=== PATIENT | male | born 1960 | race Caucasian/White ===

== ENCOUNTER 2023-06-19 01:41 | Emergency (ER) | payer OTHER, MEDICAID, SELFPAY ==
[2023-06-19 01:44] VITALS: BP 150/103; PULSE 90; RESP 12; TEMP 36.5; O2SAT 98; BMI 30.7
--- NOTE | 2023-06-19 01:52 | EX.ED.DYSGE1 ---
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 He did not have his meter with him since he was at work, so he drinks Mountain Dew and had a snack on his way here. Upon evaluation, his blood sugar is testing 122. He denies having any other symptoms. No recent illness. He is a type II diabetic on pills and insulin. Appetite and oral intake has been normal lately has not taken too much of any of his medications. 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) Allergy/AdvReac Type Severity Reaction Status Date / Time No Known Allergies Allergy Verified 06/19/23 01:50 Social History Smoking Status: Current every day smoker tobacco type: cigarettes ROS ROS ED Constitutional Constitutional ED: Reports malaise; Denies chills or fever(s) Eyes Eyes: Denies change in vision or diplopia ENT ENT ED: Denies rhinorrhea, sore throat or vertigo Cardiovascular Cardiovascular: Reports lightheadedness; Denies chest pain, palpitations or syncope Respiratory/Chest Respiratory/Chest: Denies cough or dyspnea Gastrointestinal Gastrointestinal: Denies abdominal pain, diarrhea, nausea or vomiting Genitourinary Genitourinary ED: Denies dysuria or hematuria Musculoskeletal Musculoskeletal: Denies back pain or neck pain Integumentary Denies abscess or rash Neurologic Neurologic: Denies headache(s), paresthesias or weakness Psychiatric Psychiatric: Denies anxiety or suicidal thoughts EXAM Physical Exam Const Vital Signs: 06/19/23 01:44 06/19/23 01:46 06/19/23 02:14 Temperature 97.7 F L Temperature Source Oral Pulse Rate 90 80 Respiratory Rate 12 12 Respiratory Effort Normal Respiratory Pattern Normal Blood Pressure 150/103 H 129/87 H Blood Pressure Mean 118 101 Pulse Ox 98 98 Oxygen Delivery Method Room Air Room Air 06/19/23 02:49 Temperature Temperature Source Pulse Rate 80 Respiratory Rate 12 Respiratory Effort Respiratory Pattern Blood Pressure 124/77 H Blood Pressure Mean 92 Pulse Ox 100 Oxygen Delivery Method Positive well nourished and well developed Constitutional Narrative: Well-appearing. Dry skin. Conversive in full sentences without difficulty. General Appearance ED: well developed and NAD HEENT Reports moist mucous membranes normocephalic and atraumatic Eyes PERRL and EOMs intact bilaterally Neck full ROM and supple Resp normal respiratory effort and clear to auscultation bilaterally Cardio regular rate, regular rhythm and no murmurs GI non-tender and non-distended Auscultation: normoactive bowel sounds Palpation: soft Back/Spine no CVA tenderness General Back: other FROM Extremity normal to inspection General Extremety ED: Negative for edema, pulses abnormal or tenderness General Extremity: Negative for edema or pulses abnormal Neuro oriented x3, CN's II-XII intact bilaterally and no sensory deficits noted Sensorium / Orientation: awake and alert Motor Exam: strength 5/5 throughout Psych mental status grossly normal Skin no rashes or lesions noted and no wounds MDM MDM MDM Narrative Medical decision making narrative: BGT 122. Otherwise vital signs are noted, little hypertensive but otherwise unremarkable. Differential is wide for these nonspecific symptoms but does include transient hypoglycemia that appears to be resolved right now, in addition to early illness of multiple kinds. Offered more workup, patient declines and would prefer to be observed, with IV fluids and maybe a snack and we will recheck his blood sugar. This was done, he is 89, he is feeling improved, states he feels a little tired still but basically feels similar to the way he does after he has recovered from a hypoglycemic episode. 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 At this time he feels he can go back to work and perform his job safely. Therefore I am okay with that and we will give him a note saying so. He is comfortable with that plan. Lab Data Attestation: I reviewed the patient's lab results. Labs: Laboratory Results - last 24 hr 06/19/23 01:48 POC Glucose 122 H Discharge Plan Triage Chief Complaint: Hypoglycemia ED Provider: Stephen Hercules Dx/Rx/DC Orders Clinical Impression: Hypoglycemia due to type 2 diabetes mellitus Instructions: Hypoglycemia (Low Blood Sugar) Stand Alone Forms: ED Work / School Excuse Primary Care Provider: Isaac Carrion Referrals: Isaac Carrion MD [Primary Care Provider] - As Needed Disposition Disposition: Home, Self Care
[2023-06-19 02:09] LABS: Bedside Glucose 122 mg/dL (74-106)
[2023-06-19 02:14] VITALS: BP 129/87; PULSE 80; RESP 12; O2SAT 98
[2023-06-19 02:49] VITALS: BP 124/77; PULSE 80; RESP 12; O2SAT 100
--- OUTSIDE RECORDS SUMMARY | 2023-06-19 02:49 | XMS RPT_ITS | CCD ---
Author Name Unknown Address [address] [place] [address] Organization [facility] Care Team Providers Care Orthotics Assistant Name Role Phone JENNIFER RODRIGUEZ Unavailable Unavailable JOSELINE GREENFIELD Unavailable JOSELINE Arshad Unavailable SUZANNE Villasenor Unavailable Unavailable Arcadio Bullard Unavailable Unavailable Sis Lugo Unavailable Unavailable Sis Lugo Unavailable Unavailable Arcadio Bullard Unavailable Unavailable Jeanette Pierson Unavailable [phone] Unavailable Unavailable Gi Hartman Unavailable [facility] webb Stacie Unavailable Unavailable GarvinGi S Unavailable Unavailable Unavailable Spenser Segura Unavailable Unavailable GI HARTMAN Attending Unavailable GI HARTMAN S Primary Care Unavailable Brett Calles Unavailable Unavailable Naomi Abbott Unavailable GI HARTMAN S Primary Care Unavailable Garvin DOYinaGi S. Primary Care Provider Gi Hartman DO Unavailable Kathrin Munson LPN Unavailable Unavailable Ramón Goff Primary Care Provider [phone] Dr. Gi Hartman Primary Care UnavailDr. Brett Schaeffer Attending UnavailDr. Gi Sharif Primary Care Unavailabl e Stevan, Dr. Brett Crawford Attending Unavailabl e Stevan, Dr. Brett Crawford Attending Unavailabl e Garvin, Dr. Gi Stoner Primary Care Unavailabl e MD ANDREA JORDAN Admitting Unavailable Self, Referral Referring Unavailable Moomaw, Mr. Cody Lamb Attending Unavailable , Dr. Gi Stoner Primary Care Unavailabl e Francisca, Dr. Spenser Diaz Attending Unavaila sharon Hartman, Dr. Gi Stoner Primary Care Unavailabl e Matheson, Mrs. Ramón Jewell Primary Care Unavailabl e Stevan, Dr. Brett Crawford Attending Unavailabl e , Dr. Gi Stoner Referring Unavailabl e Kenna, Ms. Jeanette Bryson Primary Care Unava ilable , Dr. Gi Stoner Attending Unavailabl e MD NAOMI ABBOTT Attending Unavailable Matheson, Mrs. Ramón Jewell Primary Care Unavailabl e Garvin, Dr. Gi Stoner Referring Unavailabl e Garvin, Dr. Gi Stoner Primary Care Unavailabl e Garvin, Dr. Gi Stoner Attending Unavailabl e Garvin, Dr. Gi Stoner Primary Care Unavailabl e Garvin, Dr. Gi Stoner Attending Unavailabl e , Dr. Gi Stoner Referring Unavailabl e Garvin, Dr. Gi Stoner Primary Care Unavailabl e Garvin, Dr. Gi Stoner Attending Unavailabl e Garvin, Dr. Gi Stoner Referring Unavailabl e Garvin, Dr. Gi Stoner Primary Care Unavailabl e Garvin, Dr. Gi Stoner Attending Unavailabl e GI HARTMAN. Primary Care Unavailable YUAN JOHNSON Attending Unavailable SPENSER SEGURA Attending Unavailable SPENSER SEGURA Referring Unavailable RAMÓN JONES Primary Care Unavailable Unavailable Primary Care Provider UnavailLORNA Vasquez Attending Unavailable GI HARTMAN Primary Care Unavailable MINOO CRONIN II Attending Unavailabl KIERA Martin Referring Unavailable LORNA ARROYO Attending Unavailable LORNA ARROYO Referring Unavailable LORNA ARROYO Referring Unavailable Medications Current Medications Medication Drug Class(es) Dates Sig (Normalized) Sig (Original) amLODIPine 5 mg oral tablet (12 sources) Dihydropyridine Calcium Channel Roxi Start: 08-22-2020 End: 01-03-2023 take 1 tablet by mouth once daily amLODIPine (Norvasc) 5 mg tablet Take 1 tablet (5 mg) by mouth once daily. 0 08/22/2020 01/03/2023 Discontinued (Other) ARIPiprazole 2 mg oral tablet (3 sources) Atypical Antipsychotic Start: 10-25-2022 take 1 tablet by mouth once daily ARIPiprazole (Abilify) 2 mg tablet Indications: Bipolar depression (CMS/HCC) Take 1 tablet (2 mg) by mouth once daily. 30 tablet 2 10/25/2022 Active ciprofloxacin 500 mg oral tablet (1 source) Quinolone Antimicrobial Start: 06-04-2017 take 1 tablet by mouth twice daily ciprofloxacin HCl (CIPRO) 500 MG tablet Take 1 (one) tablet (500 mg total) by mouth 2 (two) times a day. 20 tablet 0 06/04/2017 Active empagliflozin 10 mg oral tablet (2 sources) Sodium-Glucose Cotransporter 2 Inhibitor Start: 01-03-2023 empagliflozin (Jardiance) 10 mg Indications: Type 2 diabetes mellitus with hyperglycemia, with long-term current use of insulin (CMS/HCC) Take 1 tablet daily in AM 30 tablet 3 01/03/2023 Active esomeprazole 40 mg delayed release oral capsule (17 sources) Proton Pump Inhibitor Start: 12-05-2019 take 1 capsule by mouth once daily esomeprazole (NexIUM) [address] capsule Take 1 capsule (40 mg) by mouth once every day. 0 12/05/2019 Active Garlic preparation (3 sources) Non-Standardized Food Allergenic Extract GARLIC ORAL Take by mouth. 0 Active Completed/Discontinued Medications Medication Drug Class(es) Dates Sig (Normalized) Sig (Original) atenolol 50 mg oral tablet (1 source) beta-Adrenergic Roxi Start: 06-28-2020 take 1 tablet by mouth once daily Atenolol 50 MG Oral Tablet Take 1 tablet daily Quantity: 90 Refills: 1 Ordered: 03-Aug-2020 Jeanette Delacruz Start : 28-Jun-2020 Active atorvastatin 20 mg oral tablet (20 sources) HMG-CoA Reductase Inhibitor Start: 03-22-2023 take 1 tablet by mouth once atorvastatin (LIPITOR) 20 mg tablet Take 1 tablet by mouth every afternoon. 0 03/22/2023 Active Problems Active Problems Problem Classification Problem Date Documented Da te Episodic/Chronic Acquired foot deformities (4 sources) Hammer toe; Translations: [Other hammer toe(s) (acquired), right foot] Onset: 2023 2023 Chronic Anxiety disorders (16 sources) Mixed anxiety and depressive disorder; Translations: [Anxiety state, unspecified] Onset: 05-10-2022 01-03-2023 Chronic Chronic ulcer of skin (15 sources) Ulcer of foot; Translations: [Ulcer of other part of foot] Onset: 07-14-2022 07-14-2022 Chronic Conditions associated with dizziness or vertigo (5 sources) Lightheadedness; Translations: [Dizziness and giddiness] Onset: 05-10-2022 12-13-2022 Episodic Diabetes mellitus with complications (20 sources) Diabetes mellitus; Translations: [Diabetes mellitus without mention of complication, type II or unspecified type, not stated as uncontrolled] Onset: 07-14-2022 Resolved: 01-03-2023 09-03-2022 Chronic Diabetes mellitus without complication (12 sources) Type 2 diabetes mellitus; Translations: [Type 2 diabetes mellitus without complications] Onset: 05-10-2022 Chronic Diabetes mellitus without complication (2 sources) Diabetes mellitus without complication 09-03-2022 Past or Other Problems Problem Classification Problem Date Documented Da te Episodic/Chronic Abdominal pain (2 sources) Periumbilical pain; Translations: [Periumbilical pain] Onset: 03-24-2022 Episodic Diabetes mellitus with complications (1 source) Diabetic - poor control; Translations: [Poorly controlled diabetes mellitus] Immunizations and screening for infectious disease (20 sources) Patient encounter status; Translations: [Other specified vaccination] Onset: 09-03-2022 Resolved: 03-05-2022 09-03-2022 Episodic Nausea and vomiting (4 sources) Nausea and vomiting; Translations: [Nausea with vomiting] Onset: 03-24-2022 03-23-2022 Episodic Other aftercare (1 source) Other [facility] (current) drug therapy; Translations: [Other [facility] (current) drug therapy] Onset: 05-10-2022 Episodic Other aftercare (1 source) [facility] (current) use of oral hypoglycemic drugs; Translations: [intermediate manager (current) use of oral hypoglycemic drugs] Onset: 03-24-2022 Episodic Other gastrointestinal disorders (2 sources) Diarrhea, unspecified; Translations: [Diarrhea, unspecified] Onset: 03-24-2022 Episodic Other screening for suspected conditions (not mental disorders or infectious disease) (4 sources) Encounter for screening for malignant neoplasm of prostate; Translations: [Encounter for screening for malignant neoplasm of prostate] Onset: 09-03-2022 Episodic Residual codes; unclassified (11 sources) Noncompliance with treatment; Translations: [Personal history of noncompliance with medical treatment, presenting hazards to health] Resolved: 06-29-2020 Episodic Residual codes; unclassified (7 sources) Insomnia; Translations: [Insomnia, unspecified] Onset: 07-14-2022 07-14-2022 Episodic Residual codes; unclassified (2 sources) Sleep deprivation; Translations: [Sleep deprivation] Onset: 05-10-2022 Episodic Sprains and strains (5 sources) Sprain of left hand; Translations: [Late effect of sprain and strain without mention of tendon injury] Onset: 07-14-2022 07-14-2022 Episodic Urinary tract infections (1 source) Abscess of perineum; Translations: [Urethral abscess] Onset: 06-04-2017 06-04-2017 Episodic NEGATED: Highlighted row has not occurred!Residual codes; unclassified (4 sources) Disease Episodic Results Test Name Value Interpretation Reference Range Facil ity Vital Signs Date Time Vital Sign Value Performing Clinician Facility 01-21-2023 09:16-0400 Body height 186.7 cm Ramón ELAM Work Phone: [facility] 01-21-2023 09:16-0400 Body mass index (BMI) [Ratio] 31.3 kg/m2 Ramón Jones APRN-ENGINEERING MANAGER [employer]LECT[employer]ICS Work Phone: [facility] 01-21-2023 09:16-040 Body weight 109.09 kg Ramón Jones APRN-YVONNE Work Phone: [facility] 01-21-2023 09:16-0400 Diastolic blood pressure 78 mm[Hg] Ramón Jones APRN-YVONNE Work Phone: [facility] 01-21-2023 09:16-0400 Heart rate 80 /min Ramón Matheson AGENCY APPOINTMENTS SUPERVISOR-ENGINEERING MANAGER ELECTRONICS Work Phone: [facility] 01-21-2023 09:16-0400 Systolic blood pressure 124 mm[Hg] Ramón Jones AGENCY APPOINTMENTS SUPERVISOR-ENGINEERING MANAGER [employer]LECTRONICS Work Phone: [facility] 01-03-2023 08:22-0400 Body height 186.7 cm Ramón Jones AGENCY APPOINTMENTS SUPERVISOR-ENGINEERING MANAGER [employer]LECTRON[employer] Work Phone: [facility] 01-03-2023 08:22-0400 Body mass index (BMI) [Ratio] 31.23 kg/m2 Ramón Jones AGENCY APPOINTMENTS SUPERVISOR-ENGINEERING MANAGER [employer]LECTRONICS Work Phone: [facility] 01-03-2023 08:22-0400 Body weight 108.86 kg Ramón Jones AGENCY APPOINTMENTS SUPERVISOR-ENGINEERING MANAGER [employer]LECTRONICS Work Phone: [facility] 01-03-2023 08:22-0400 Diastolic blood pressure 90 mm[Hg] Ramón Jones AGENCY APPOINTMENTS SUPERVISOR-ENGINEERING MANAGER [employer] Work Phone: [facility] 01-03-2023 08:22-0400 Heart rate 96 /min Ramón Jones AGENCY APPOINTMENTS SUPERVISOR-ENGINEERING MANAGER [employer] Work Phone: [facility] 01-03-2023 08:22-0400 Systolic blood pressure 148 mm[Hg] Ramón Jones AGENCY APPOINTMENTS SUPERVISOR-ENGINEERING MANAGER [employer]LECTRONICS Work Phone: [facility] 12-15-2022 10:00-0400 Body temperature 98.24 [degF] Gi Garvin Other Phone: [facility] 12-15-2022 10:00-0400 Diastolic blood pressure 84 mm[Hg] Gi Garvin Other Phone: [facility] 12-15-2022 10:00-0400 Heart rate 73 /min Gi Garvin Other Phone: [facility] 12-15-2022 10:00-0400 Respiratory rate 16 /min Gi Garvin Other Phone: [facility] 12-15-2022 10:00-0400 SaO2% (BldA) [Mass fraction] 97 % Gi Hartman Other Phone: [facility] 12-15-2022 10:00-0400 Systolic blood pressure 130 mm[Hg] Gi Hartman Other Phone: [facility] 05-28-2022 08:13-0500 Body height 187.96 cm Gi Stoner Garvin Work Phone: [employer] Work Phone: 05-28-2022 08:13-0500 Body mass index (BMI) [Ratio] 30.17 kg/m2 Gi Stoner Garvin Work Phone: [employer] Work Phone: 05-28-2022 08:13-0500 Body surface area Derived from formula 2.33 m2 Gi Hartman [facility] Phone[facility] [employer] Work Phone: 05-28-2022 08:13-0500 Body weight 106.6 kg Gi Hartman Work Phone: [employer] Work Phone: 05-28-2022 08:13-0500 Diastolic blood pressure 84 mm[Hg] Gi Stoner Garvin Work Phone: [facility] Work Phone: 05-28-2022 08:13-0500 Heart rate 82 /min Gi Stoner Garvin Work Phone: [employer] Work Phone: 05-28-2022 08:13-0500 SaO2% (BldA) [Mass fraction] 97 % Gi S Garvin Work Phone: [employer] Work Phone: 05-28-2022 08:13-0500 Systolic blood pressure 162 mm[Hg] Gi S Garvin Work Phone: [employer] Work Phone: 05-10-2022 20:41-0500 Diastolic blood pressure 84 mm[Hg] Gi Garvin Other Phone: [facility] 05-10-2022 20:41-0500 Heart rate 95 /min Gi Garvin Other Phone: [facility] 05-10-2022 20:41-0500 Respiratory rate 17 /min Gi Hartman Other Phone: [facility] 05-10-2022 20:41-0500 SaO2% (BldA) [Mass fraction] 96 % Gi Hartman Other Phone: [facility] 05-10-2022 20:41-0500 Systolic blood pressure 145 mm[Hg] Gi Hartman Other Phone: [facility] 05-10-2022 19:05-0500 Body height 190.5 cm Gi Hartman Other Phone: [facility] 05-10-2022 19:05-0500 Body temperature 97.7 [degF] Gi Hartman Other Phone: [facility] 05-10-2022 19:05-0500 Body weight 99.6 kg Gi Hartman Other Phone: [facility] 2022 07:54-0500 Body height 187.96 cm Gi Stoner Garvin Work Phone: [facility] [employer] Work Phone: 2022 07:54-0500 Body mass index (BMI) [Ratio] 29.66 kg/m2 Gi S Garvin Work Phone: [employer] Work Phone: 2022 07:54-0500 Body surface area Derived from formula 2.31 m2 Gi S Garvin Work Phone: [facility] [employer] [facility] Work Phone: 2022 07:54-0500 Body weight 104.78 kg Gi Hartman Work Phone: [facility] Work Phone: 2022 07:54-0500 Diastolic blood pressure 80 mm[Hg] Gi Stoner Garvin Work Phone: [facility] Work Phone: 2022 07:54-0500 Heart rate 90 /min Gi Hartman [employer] Phone: [facility] Work Phone: 2022 07:54-0500 SaO2% (BldA) [Mass fraction] 98 % Gi Hartman [employer] Phone: [facility] Work Phone: 2022 07:54-0500 Systolic blood pressure 126 mm[Hg] Gi Hartman [employer] Phone: [facility] Work Phone: 03-26-2022 09:28-0400 Body height 187.96 cm Gi Hartman [employer] Phone: [facility] Work Phone: 03-26-2022 09:28-0400 Body mass index (BMI) [Ratio] 29.53 kg/m2 Gi Stoner [employer] Phone: [facility] Work Phone: 03-26-2022 09:28-0400 Body surface area Derived from formula 2.31 m2 Gi Hartman [employer] Phone: [facility] [employer] [facility] Work Phone: 03-26-2022 09:28-0400 Body weight 104.33 kg Gi Stoner Garvin Work Phone: [employer] Work Phone: 03-26-2022 09:28-0400 Diastolic blood pressure 76 mm[Hg] Gi S Garvin Work Phone: [employer] Work Phone: 03-26-2022 09:28-0400 Heart rate 98 /min Gi S Garvin Work Phone: [employer] [facility] Work Phone: 03-26-2022 09:28-0400 SaO2% (BldA) [Mass fraction] 97 % Gi Stoner Garvin Work Phone: [employer] Work Phone: 03-26-2022 09:28-0400 Systolic blood pressure 126 mm[Hg] Gi S Garvin Work Phone: [employer] Work Phone: 03-24-2022 00:00-0400 Diastolic blood pressure 83 mm[Hg] Gi Garvin Other Phone: [facility] 03-24-2022 00:00-0400 Heart rate 87 /min Gi Garvin Other Phone: [facility] 03-24-2022 00:00-0400 Respiratory rate 18 /min Gi Garvin Other Phone: [facility] 03-24-2022 00:00-0400 SaO2% (BldA) [Mass fraction] 95 % Gi Garvin Other Phone: [facility] 03-24-2022 00:00-0400 Systolic blood pressure 146 mm[Hg] Gi Garvin Other Phone: [facility] 03-23-2022 22:53-0400 Body height 190.5 cm Gi Hartman Other Phone: [facility] 03-23-2022 22:53-0400 Body temperature 98.24 [degF] Gi Hartman Other Phone: [facility] 03-23-2022 22:53-0400 Body weight 94 kg Gi Hartman Other Phone: [facility] 03-05-2022 09:14-0400 Body height 187.96 cm Jeanette Pierson Work Phone: [facility] Work Phone: 03-05-2022 09:14-0400 Body mass index (BMI) [Ratio] 28.19 kg/m2 Jeanette Pierson Work Phone: [facility] Work Phone: 03-05-2022 09:14-0400 Body surface area Derived from formula 2.26 m2 Jeanette Pierson Work Phone: [facility] Work Phone: 03-05-2022 09:14-0400 Body weight 99.59 kg Jeanette Pierson Work Phone: [facility] Work Phone: 03-05-2022 09:14-0400 Diastolic blood pressure 88 mm[Hg] Jeanette Pierson Work Phone: [facility] Work Phone: 03-05-2022 09:14-0400 Heart rate 100 /min Jeanette Pierson Work Phone: [facility] Work Phone: 03-05-2022 09:14-0400 SaO2% (BldA) [Mass fraction] 98 % Jeanette Pierson Work Phone: [facility] Work Phone: 03-05-2022 09:14-0400 Systolic blood pressure 158 mm[Hg] Jeanette Pierson Work Phone: [facility] Work Phone: 11-13-2019 13:35-0400 BMI (Body Mass Index) 30.08 kg/m2 Arcadio [facility] Work Phone: 11-13-2019 13:35-0400 Body Temperature 97.3 [degF] Arcadio [facility] Work Phone: 11-13-2019 13:35-0400 Body weight 106.28 kg Arcadio Bullard [facility] Work Phone: 11-13-2019 13:35-0400 BP Diastolic 80 mm[Hg] [facility] Work Phone: 11-13-2019 13:35-0400 BP Systolic 126 mm[Hg] [facility] Work Phone: 11-13-2019 13:35-0400 BSA (Body Surface Area) 2.32 m2 [facility] Work Phone: 11-13-2019 13:35-0400 Height 187.96 cm Arcadio [facility] Work Phone: 11-13-2019 13:35-0400 Pulse (Heart Rate) 88 /min Arcadio [facility] Work Phone: Encounters Encounter Date Encounter Type Care Provider Facility Start: 06-07-2023 End: 06-07-2023 ambulatory GI HARTMAN Facility:[facility] Start: 05-17-2023 End: 05-17-2023 ambulatory KIERA BOUDREAUX Facility:[facility] Start: 05-17-2023 End: 05-17-2023 Patient encounter procedure Lorna Arroyo Work Phone: Podiatry Procedures Date Procedure Procedure Detail Performing Clinician Start: 03-27-2023 DISCHARGE PATIENT ANALISA SEGURA Start: 03-27-2023 VITAL SIGNS SPENSER MENARD Start: 03-27-2023 NURSING COMMUNICATIO N - DO NOT USE IN ORDER SETS SPENSER SEGURA Start: 03-27-2023 XR FOOT RIGHT 3+ VIEWS SPENSER RAEERSEN Start: 12-12-2022 End: 12-12-2022 EKG impression Yuan Walker Start: 09-10-2022 Basic metabolic 2000 panel - Serum or Plasma [facility] Start: 09-10-2022 Hemoglobin A1c/Hemoglobin.total in Blood [facility] Start: 09-10-2022 PROSTATE SPECIFIC AN TIGEN, SCREEN [facility] Start: 03-05-2022 Lipid 1996 panel - S nas or Plasma Ramón Jones AGENCY APPOINTMENTS SUPERVISOR-ENGINEERING MANAGER ELECTRONICS Work Phone: Start: 05-08-2021 PSA screening Plan of Treatment Date Care Activity Detail Author Start: 03-05-2027 Lipid 1996 panel - Serum or Plasma Lipid Screening [facility] Start: 05-08-2026 Prostate Cancer Screening Discussion Prostate Cancer Screening Discussion [facility] Start: 09-10-2025 Diabetes Screening Diabetes Screening [facility] Start: 10-30-2024 Cyanocobalamin vitamin b-12 Vitamin B-12 [facility] Start: 06-14-2023 Hemoglobin A1c/Hemoglobin.total in Blood HbA1C [facility] Start: 03-18-2023 End: 03-18-2023 Patient encounter procedure 03/18/2023 8:30 AM EDT Office Visit [facility] [address] [place] [id number] Ramón Jones, AGENCY APPOINTMENTS SUPERVISOR-ENGINEERING MANAGER [employer]LECTRONICS [address] [facility] [place] [address] [facility] Start: 03-14-2023 Hemoglobin A1c measurement Diabetes: Hemoglobin A1C [facility] Start: 03-14-2023 End: 01-22-2024 Hemoglobin A1c/Hemoglobin.total in Blood Hemoglobin A1c Lab Routine Type 2 diabetes mellitus with hyperglycemia, with long-term current use of insulin ([facility]/HCC) Expected: 03/14/2023 (Approximate), Expires: 01/22/2024 [facility] Service Area Work Phone: Immunizations Immunization Date Immunization Notes Care Provider Neela glasertisha 03-20-2019 influenza, injectabl e, quadrivalent, preservative free Jeanette Lorenzo Pierson Work Phone: [facility] Work Phone: 03-20-2019 influenza virus vacc ine, unspecified formulation Ramón Jones [facility]ENCY APPOINTMENTS [facility] Work Phone: [facility] Work Phone: 03-10-2019 pneumococcal polysaccharide vaccine, 23 valent Arcadio Bullard [facility] Work Phone: Payers Date Payer Category Payer Private Health Insurance [employer] [id number] 2022-Present [address] [place] [address] [id number] 2022 Unknown [id number] 2022 Unknown [id number] 2019 Unknown 2019 Private Health Insurance [id number] 2018 Worker's Compensation 2011 Medicare MEDICARE MEDICAR E PART A & B [id number] 2011-Present [phone] S [id number] PART A CLAIMS [address] [address] [place] [address] [id number] 2011 Medicare [id number] 1961 Unknown [id number] [id number]. 2.902 1961 Unknown [id number] 2.16.840.1.519854.3.579. 2.902 1961 Unknown [id number] 2.16.840.1.104828.3.579. 2.1244 1961 Unknown [id number] 2.16.840.1.148698.3.579. 2.1245 1961 Unknown [id number] 2.16.840.1.920437.3.579. 2.1069 1961 Unknown [id number] 2.16.840.1.553417.3.579. 2.1069 1961 Unknown [id number] 2.16.840.1.373154.3.579. 2.1069 1961 Unknown [id number] 2.16.840.1.260372.3.579. 2.9 1961 Unknown [id number] 2.16.840.1.632818.3.579. 2.1069 1961 Unknown [id number] 2.16.840.1.207655.3.579. 2.9 1961 Unknown [id number] 2.16.840.1.933810.3.579. 2.356 1961 Unknown [id number] 2.16.840.1.444058.3.579. 2.356 1961 Unknown [id number] 2.16.840.1.311021.3.579. 2.356 1961 Unknown [id number] 2.16.840.1.421757.3.579. 2.356 1961 Unknown [id number] 2.16.840.1.224653.3.579. 2.356 1961 Unknown [id number] 2.16.840.1.246515.3.579. 2.356 1961 Unknown [id number] 2.16.840.1.929352.3.579. 2.902 1961 Unknown [id number] 2.16.840.1.392461.3.579. 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 Start: 1960 Sex Assigned At Not on file [facility] Start: 03-28-2018 Gender identity Identifies as male gender (finding) [facility] History of tobacco use Cigarette Smoker [facility] Work Phone: Start: 01-03-2023 End: 05-17-2023 Alcohol intake Ex-drinker (finding) [facility] Work Phone: Start: 01-03-2023 Tobacco Comment Advised on ris ks associated with smoking, including heart and circulatory affects [facility] Work Phone: Start: 12-24-2022 End: 01-21-2023 Exposure to SARS-CoV-2 (event) Not sure [facility] National Score (1-100), lower number is lower risk [address] [place] [address] NEGATED: Highlighted row - - [facility] Work Phone: Medical Equipment Procedure Code Equipment Code Equipment Origin al Text Equipment Identifier Dates 1 (one) time eac h day. Use as directed to check blood sugar [id number] Start: 06-29-2020 1 (one) time eac h day. Use as instructed [id number] Functional Status Date Assessment Result Facility Functional observable [facility] NEGATED: Highlighted row Functional performance Functional status health issues are not documented Disease [facility] Work Phone: Mental Status Date Assessment Result Facility 12-15-2022 Cognitive functi ons :43 [facility] NEGATED: Highlighted row Cognitive function [Interpretation] Cognitive status health issues are not documented Disease -[facility] Work Phone: Clinical Notes 12-13-2022 to 06-07-2023 Lorna Arroyo - 05/17/2023 10:49 PM Bell Guillen RN - 05/17/2023 9:32 AM ESTPatient InstructionsTelephone Encounter - Dede Sandhu LPN - 04/17/2023 2:36 PM ESTPatient Instructions<item> Note Date & Type Note Facility 06-07-2023 Note HNO ID: [id number] Author: Minoo Cronin II, OD Service: ? Author Type: ABATTOIR SUPERVISOR Type: Progress Notes Filed: 06/07/2023 10:13 AM Note Text: Assessment and Plan H52.13 Myopia, bilateral (primary encounter diagnosis) H52.223 Regular astigmatism, bilateral H52.4 Presbyopia Comment: Increase myopia. Discussed possible diabetic shift. If any problems adapting patient will return for recheck. E11.9 Type 2 diabetes mellitus without retinopathy (HCC) Comment: Examination shows no ocular diabetic complications today. Discussed need for optimal diabetes control to minimize chance of ocular complications. Advise patient to immediately report worsening in status or additional symptoms. Continue yearly dilated eye examinations. I have confirmed and edited as necessary the relevant ophthalmic history, ROS, and the neuro exam findings as obtained by others. I have seen and examined Danielle Jenkins. I have discussed the case and the management of this patient's care with the Resident/Fellow, if applicable. I also have reviewed and agree with the assessment and plan as stated above and agree with all of its relevant components. Minoo Cronin II OD [facility] 05-18-2023 Note HNO ID: [id number] Author: Lorna Arroyo Service: ? Author Type: Physician Type: Progress Notes Filed: 05/17/2023 10:53 PM Note Text: FOLLOW UP PODIATRIC OFFICE VISIT Chief Complaint: This 63 year old who presents for follow up:right 5th toe callus Patient presents to clinic for follow-up right 5th toe callus He continues to have pain to the right medial 5th toe at site of callus. He did feel relief after the callus was debrided last office visit. The callus is now returning and causing pain. He is here to discuss options. He was told by another blocker and polisher that taking the nail off may help reduce pain to the 5th toe. He is diabetic with elevated A1c He smokes nearly 1/2 pack of cigarettes day PAIN EVALUATION 05/17/2023 0933 Pain Level: 8 Pain Location: Toe Duration Amount of Time: 3 Duration Units: Months Frequency: Continuous Intervention/Comfort measure: Relaxation;Reposition No results found for: HBA1C PCP: No primary care provider on file. PAST MEDICAL HISTORY Diagnosis Date Depression Diabetes (HCC) Hypercholesteremia Hypertension Current Outpatient Medications Medication Sig atorvastatin (LIPITOR) 20 mg tablet Take 1 tablet by mouth every afternoon. metFORMIN (GLUCOPHAGE) 500 mg tablet Take 1,000 mg by mouth two times a day with meals. PARoxetine (PAXIL) 40 mg tablet Take 1 tablet by mouth every afternoon. repaglinide (PRANDIN) 2 mg tablet TAKE 1 TABLET BY MOUTH BEFORE meals (up to 3 times daily) No current facility-administered medications for this visit. ALLERGIES No Known Allergies No past surgical history on file. Physical Exam: OBJECTIVE: Constitutional: Pt is a well developed 63 year old male who is alert, oriented, cooperative and in no apparent distress. Eyes: Following during examination. No redness or drainage. Respiratory: RR normal and nonlabored. Even breathing. No evidence of distress. Psychology: Patient is engaged during conversation. Normal affect and mood. Does not appear depressed or anxious. NVSI unchanged from previous visit. Dermatological: Nails 1-5 b/l are normal. Webspaces clean and dry 1-4 b/l. Skin appears well hydrated and supple. good color, texture, turgor. No open lesions present. Callus present to medial aspect of right 5th toe. No ulceration is noted. 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 Deformity is rigid. ASSESSMENT: Hammertoe of right foot (primary encounter diagnosis) Hyperkeratosis Diabetic neuropathy with neurologic complication ([facility]) PLAN: Discussed callus of right 5th toe. The callus is caused by adductovarus deformity (hammertoe 5th ) leading to rubbing on 4th . The callus of right 5th toe was reduced with 15 blade, tissue nippers and dremmel. This did help to reduce pain in the 5th toe. THe nail is not the source of the pain. The source of the pain is callus and this is caused by hammertoe Discussed options for hammertoe not limited to periodic debridement, padding of the toe vs surgical options. Surgical options include syndactyly, derotational arthroplasty vs amputation. Patient would need to stop smoking ideally and get his A1c down prior to doing surgery. Can f/u in in 4-5 weeks for callus reduction. Do not feel that taking the 5th nail off would resolve any pain. Lorna Arroyo DPM [facility] 05-17-2023 History of Present illness Narrative FOLLOW UP PODIATRIC OFFICE VISIT Chief Complaint: This 63 year old who presents for follow up:right 5th toe callus Patient presents to clinic for follow-up right 5th toe callus He continues to have pain to the right medial 5th toe at site of callus. He did feel relief after the callus was debrided last office visit. The callus is now returning and causing pain. He is here to discuss options. He was told by another blocker and polisher that taking the nail off may help reduce pain to the 5th toe. He is diabetic with elevated A1c He smokes nearly 1/2 pack of cigarettes day PAIN EVALUATION 05/17/2023 0933 Pain Level: 8 Pain Location: Toe Duration Amount of Time: 3 Duration Units: Months Frequency: Continuous Intervention/Comfort measure: Relaxation;Reposition No results found for: HBA1C PCP: No primary care provider on file. PAST MEDICAL HISTORY Diagnosis Date Depression Diabetes (HCC) Hypercholesteremia Hypertension Current Outpatient Medications Medication Sig atorvastatin (LIPITOR) 20 mg tablet Take 1 tablet by mouth every afternoon. metFORMIN (GLUCOPHAGE) 500 mg tablet Take 1,000 mg by mouth two times a day with meals. PARoxetine (PAXIL) 40 mg tablet Take 1 tablet by mouth every afternoon. repaglinide (PRANDIN) 2 mg tablet TAKE 1 TABLET BY MOUTH BEFORE meals (up to 3 times daily) No current facility-administered medications for this visit. ALLERGIES No Known Allergies No past surgical history on file. Physical Exam: OBJECTIVE: Constitutional: Pt is a well developed 63 year old male who is alert, oriented, cooperative and in no apparent distress. Eyes: Following during examination. No redness or drainage. Respiratory: RR normal and nonlabored. Even breathing. No evidence of distress. Psychology: Patient is engaged during conversation. Normal affect and mood. Does not appear depressed or anxious. NVSI unchanged from previous visit. Dermatological: Nails 1-5 b/l are normal. Webspaces clean and dry 1-4 b/l. Skin appears well hydrated and supple. good color, texture, turgor. No open lesions present. Callus present to medial aspect of right 5th toe. No ulceration is noted. 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 Deformity is rigid. ASSESSMENT: Hammertoe of right foot (primary encounter diagnosis) Hyperkeratosis Diabetic neuropathy with neurologic complication (hcc) PLAN: Discussed callus of right 5th toe. The callus is caused by adductovarus deformity (hammertoe 5th ) leading to rubbing on 4th . The callus of right 5th toe was reduced with 15 blade, tissue nippers and dremmel. This did help to reduce pain in the 5th toe. THe nail is not the source of the pain. The source of the pain is callus and this is caused by hammertoe Discussed options for hammertoe not limited to periodic debridement, padding of the toe vs surgical options. Surgical options include syndactyly, derotational arthroplasty vs amputation. Patient would need to stop smoking ideally and get his A1c down prior to doing surgery. Can f/u in in 4-5 weeks for callus reduction. Do not feel that taking the 5th nail off would resolve any pain. Lorna Arroyo DPM AMB ROOMING INTAKE FLOWSHEET DATA Pain Pain Level: 8 Pain Location: Toe Duration Amount of Time: 3 Duration Units: Months Frequency: Continuous Intervention/Comfort measure: Relaxation, Reposition Patient presents with: Right 5th Toe - Established Patient, Follow Up, Pain Patient presents for results follow up and wants to discuss possible removal of 5th toenail. XR-04/16/23 documented in this encounter [facility] 05-17-2023 Note HNO ID: [id number] Author: Echeverria, Bell, RN Service: ? Author Type: Registered Nurse Type: Progress Notes Filed: 05/17/2023 10:53 PM Note Text: AMB ROOMING INTAKE FLOWSHEET DATA Pain Pain Level: 8 Pain Location: Toe Duration Amount of Time: 3 Duration Units: Months Frequency: Continuous Intervention/Comfort measure: Relaxation, Reposition Patient presents with: Right 5th Toe - Established Patient, Follow Up, Pain Patient presents for results follow up and wants to discuss possible removal of 5th toenail. XR-04/16/23 [facility] 05-17-2023 Instructions Lorna Arroyo - 05/17/2023 9:57 AM EST You have callus of both 5th toe R>L Would recommend use of padding or lambs wool between the toes Periodic use of pummice stone to file down can be of help Periodic use of betadine when the toe is moist can dry out the interspace documented in this encounter [facility] 04-17-2023 Miscellaneous Notes Patient notified of results as patients request. Dede Sandhu LPN Circulation studies are normal documented in this encounter [facility] 2023 Note HNO ID: [id number] Author: Sunni Montelongo RT(R) Service: Radiology Author Type: Technologist Type: Progress Notes Filed: 2023 11:00 AM Note Text: Radiology Service Progress Note PATIENT NAME: Danielle Jenkins DATE OF SERVICE: 2023 TIME: 10:48 AM PATIENT IDENTITY VERIFICATION COMPLETED USING TWO (2) IDENTIFIERS: Name and Date of confirmed by patient verbally. FALL SCREENING: Has the patient had 2 falls in the last year or 1 fall with injury or currently using an Ambulatory Assistive Device (Walker, Cane, Wheelchair, Crutches, etc.)? No PATIENT GENDER DATA: Male PATIENT RELEVANT IMPLANT DATA REVIEWED: Not Applicable RADIOLOGY DEPARTMENT: General X-ray: Exam(s) Completed: Lower Extremity X-Ray(s): Foot, Right and Wt. Bearing PERIPHERAL IV DATA: Not applicable SIGNED BY: RT Braden(R) 2023 10:48 AM [facility] 2023 Note HNO ID: [id number] Author: Bell Echeverria RN Service: ? Author Type: Registered Nurse Type: Progress Notes Filed: 04/20/2023 5:09 AM Note Text: Per Dr. Arroyo, Danielle was provided with Gel toe cap size small, and instructed/educated in its application, wear, and care. All questions were answered, and patient was able to demonstrate competence with the necessary skills to utilize the above equipment. Bell Echeverria RN [facility] 2023 Note HNO ID: [id number] Author: Lorna Arroyo Service: ? Author Type: Physician Type: Progress Notes Filed: 04/20/2023 5:09 AM Note Text: Initial Podiatric Office Visit: Chief Complaint: This 63 year old male who presents with chief complaint:ulceration of right 5th toe HPI Patient presents to clinic for evaluation of right 5th toe. Patient has ulceration to the right medial 5th toe that has been present for about 6-8 weeks. Patient believes that his steel toe boots led to an ulceration. Patient initially saw his pcp the last week of February and he was treated with Amoxicillin. He had xrays around that same time and the xrays were negative for bone infection. Patient was treating the wound with topical antibiotic cream and guaze between the toes. About 3 weeks later, the toe was more painful. He went to the ER the third week of March. He was placed on a week of bactrim and keflex. He feels the antibiotic did help to some degree. He still has pain to the right foot. Patient smokes 1/2 pack of cigarettes/day Patient is diabetic x 2 years. His last a1c drawn last week was 9.8. PAIN EVALUATION 2023 0934 Pain Level: 2 Pain Location: Foot-Right Description: Dull;Aching Sensitive Duration Amount of Time: 7 Duration Units: Weeks Frequency: Intermittent Intervention/Comfort measure: Reposition No results found for: HBA1C PCP: No primary care provider on file. PAST MEDICAL HISTORY Diagnosis Date Depression Diabetes (HCC) Hypercholesteremia Hypertension Current Outpatient Medications Medication Sig atorvastatin (LIPITOR) 20 mg tablet Take 1 tablet by mouth every afternoon. metFORMIN (GLUCOPHAGE) 500 mg tablet Take 1,000 mg by mouth two times a day with meals. PARoxetine (PAXIL) 40 mg tablet Take 1 tablet by mouth every afternoon. repaglinide (PRANDIN) 2 mg tablet TAKE 1 TABLET BY MOUTH BEFORE meals (up to 3 times daily) No current facility-administered medications for this visit. ALLERGIES Not on File History reviewed. No pertinent surgical history. History reviewed. No pertinent family history. Social History Tobacco Use Smoking status: Every Day Packs/day: .5 Types: Cigarettes Smokeless tobacco: Never Substance Use Topics Alcohol use: Not Currently Drug use: Never REVIEW OF SYSTEMS GENERAL: Negative for Malaise, significant weight loss, fever RESPIRATORY: Negative for cough, wheezing and shortness of breath CARDIOVASCULAR: Negative for chest pain, leg swelling and palpitations GI: Negative for abdominal discomfort, blood in stools or black stools and change in bowel habits : Negative for dysuria, frequency and incontinence MUSCULOSKELETAL: Negative for joint pain or swelling, back pain, and muscle pain. SKIN: Negative for lesions, rash, and itching. HEMATOLOGY/LYMPHOLOGY Negative for prolonged bleeding, bruising easily, and swollen nodes. ENDOCRINE: Negative for cold or heat intolerance, polyuria, polydipsia and goiter. NEURO: negative Physical Exam: Constitutional: Pt is a well developed 63 year old male who is alert, oriented and cooperative Eyes: Following during examination. No redness or drainage. Respiratory: RR normal and nonlabored. Even breathing. No evidence of distress or shortness of breath. Psychology: Patient is engaged during conversation. Normal affect and mood. Does not appear depressed or anxious during encounter. Vascular: Dorsalis pedis and posterior tibial pulses faintly palpable as b/l Capillary Fill time < 5 seconds to digits 1-5 b/l Skin temperature warm to cool proximal to distal b/l Hair growth decreased to digits Neurological: decreased light touch/epicritic sensation Vibratory sensation absent b/l decreased protective sensation + significant neurological deficits Dermatological: Nails 1-5 b/l appear normal. Webspaces clean and dry 1-4 b/l. Skin appears well hydrated and supple. good color, texture, turgor. No open lesions present. Callus present to right 5th toe medial aspect. No ulceration present. Musculoskeletal/Orthopaedic: Patient has pain to palpation of right 5th toe Rigid hammertoe noted to right 5th toe Foot type is neutral structurally AJ ROM is decreased with knee extended and flexed 1st MPJ is decreased when loaded and no pain or crepitus are noted with ROM. MTJ, STJ are full and free of pain and crepitus. +5/5 muscle strength dorsiflexion, plantarflexion, inversion, eversion b/l Radiographs: ordered ASSESSMENT: (M20.41) Hammertoe of right foot (primary encounter diagnosis (L85.9) Hyperkeratosis (E11.40, E11.49) Diabetic neuropathy with neurologic complication (HCC) Diminished pulses on foot PLAN: 1. History and physical examination performed. 2. Discussed hammertoe of right 5th toe as cause for recurrent callus. Callus of right 5th toe was reduced today with 15 blade and dremmel. Will treat with hammertoe pad 3. Discussed (more content not included)... [facility] 2023 Note HNO ID: [id number] Author: Rosmery Armijo RN Service: ? Author Type: Registered Nurse Type: Progress Notes Filed: 04/20/2023 5:09 AM Note Text: Patient presents with: Right Foot - New: Pain in the right 5th toe Patient states he developed a diabetic ulcer from his right foot rubbing on his steel toed boots. Saw Dr. aCrrion at the [facility] for treatment. States it has gotten better but hasn't gotten better. is with the patient today. 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 AMB ROOMING INTAKE FLOWSHEET DATA Pain Pain Level: 2 Pain Location: Foot-Right Description: Dull, Aching (Sensitive) Duration Amount of Time: 7 Duration Units: Weeks Frequency: Intermittent Intervention/Comfort measure: Reposition Rosmery Armijo RN [facility] 2023 History of Present illness Narrative Radiology Service Progress Note PATIENT NAME: Danielle Jenkins DATE OF SERVICE: 2023 TIME: 10:48 AM PATIENT IDENTITY VERIFICATION COMPLETED USING TWO (2) IDENTIFIERS: Name and Date of confirmed by patient verbally. FALL SCREENING: Has the patient had 2 falls in the last year or 1 fall with injury or currently using an Ambulatory Assistive Device (Walker, Cane, Wheelchair, Crutches, etc.)? No PATIENT GENDER DATA: Male PATIENT RELEVANT IMPLANT DATA REVIEWED: Not Applicable RADIOLOGY DEPARTMENT: General X-ray: Exam(s) Completed: Lower Extremity X-Ray(s): Foot, Right and Wt. Bearing PERIPHERAL IV DATA: Not applicable SIGNED BY: RT Braden(R) 2023 10:48 AM documented in this encounter [facility] 2023 History of Present illness Narrative Per Dr. Arroyo, Danielle was provided with Gel toe cap size small, and instructed/educated in its application, wear, and care. All questions were answered, and patient was able to demonstrate competence with the necessary skills to utilize the above equipment. Bell Echeverria RN Images from the original note were not included. Initial Podiatric Office Visit: Chief Complaint: This 63 year old male who presents with chief complaint:ulceration of right 5th toe HPI Patient presents to clinic for evaluation of right 5th toe. Patient has ulceration to the right medial 5th toe that has been present for about 6-8 weeks. Patient believes that his steel toe boots led to an ulceration. Patient initially saw his pcp the last week of February and he was treated with Amoxicillin. He had xrays around that same time and the xrays were negative for bone infection. Patient was treating the wound with topical antibiotic cream and guaze between the toes. About 3 weeks later, the toe was more painful. He went to the ER the third week of March. He was placed on a week of bactrim and keflex. He feels the antibiotic did help to some degree. He still has pain to the right foot. Patient smokes 1/2 pack of cigarettes/day Patient is diabetic x 2 years. His last a1c drawn last week was 9.8. PAIN EVALUATION 2023 0934 Pain Level: 2 Pain Location: Foot-Right Description: Dull;Aching Sensitive Duration Amount of Time: 7 Duration Units: Weeks Frequency: Intermittent Intervention/Comfort measure: Reposition No results found for: HBA1C PCP: No primary care provider on file. PAST MEDICAL HISTORY Diagnosis Date Depression Diabetes (HCC) Hypercholesteremia Hypertension Current Outpatient Medications Medication Sig atorvastatin (LIPITOR) 20 mg tablet Take 1 tablet by mouth every afternoon. metFORMIN (GLUCOPHAGE) 500 mg tablet Take 1,000 mg by mouth two times a day with meals. PARoxetine (PAXIL) 40 mg tablet Take 1 tablet by mouth every afternoon. repaglinide (PRANDIN) 2 mg tablet TAKE 1 TABLET BY MOUTH BEFORE meals (up to 3 times daily) No current facility-administered medications for this visit. ALLERGIES Not on File History reviewed. No pertinent surgical history. History reviewed. No pertinent family history. Social History Tobacco Use Smoking status: Every Day Packs/day: .5 Types: Cigarettes Smokeless tobacco: Never Substance Use Topics Alcohol use: Not Currently Drug use: Never REVIEW OF SYSTEMS GENERAL: Negative for Malaise, significant weight loss, fever RESPIRATORY: Negative for cough, wheezing and shortness of breath CARDIOVASCULAR: Negative for chest pain, leg swelling and palpitations GI: Negative for abdominal discomfort, blood in stools or black stools and change in bowel habits : Negative for dysuria, frequency and incontinence MUSCULOSKELETAL: Negative for joint pain or swelling, back pain, and muscle pain. SKIN: Negative for lesions, rash, and itching. HEMATOLOGY/LYMPHOLOGY Negative for prolonged bleeding, bruising easily, and swollen nodes. ENDOCRINE: Negative for cold or heat intolerance, polyuria, polydipsia and goiter. NEURO: negative Physical Exam: Constitutional: Pt is a well developed 63 year old male who is alert, oriented and cooperative Eyes: Following during examination. No redness or drainage. Respiratory: RR normal and nonlabored. Even breathing. No evidence of distress or shortness of breath. Psychology: Patient is engaged during conversation. Normal affect and mood. Does not appear depressed or anxious during encounter. Vascular: Dorsalis pedis and posterior tibial pulses faintly palpable as b/l Capillary Fill time < 5 seconds to digits 1-5 b/l Skin temperature warm to cool proximal to distal b/l Hair growth decreased to digits Neurological: decreased light touch/epicritic sensation Vibratory sensation absent b/l decreased protective sensation + significant neurological deficits Dermatological: Nails 1-5 b/l appear normal. Webspaces clean and dry 1-4 b/l. Skin appears well hydrated and supple. good color, texture, turgor. No open lesions present. Callus present to right 5th toe medial aspect. No ulceration present. Musculoskeletal/Orthopaedic: Patient has pain to palpation of right 5th toe Rigid hammertoe noted to right 5th toe Foot type is neutral structurally AJ ROM is decreased with knee extended and flexed 1st MPJ is decreased when loaded and no pain or crepitus are noted with ROM. MTJ, STJ are full and free of pain and crepitus. +5/5 muscle strength dorsiflexion, plantarflexion, inversion, eversion b/l Radiographs: ordered ASSESSMENT: (M20.41) Hammertoe of right foot (primary encounter diagnosis (L85.9) Hyperkeratosis (E11.40, E11.49) Diabetic neuropathy with neurologic complication (HCC) Diminished pulses on foot PLAN: 1. History and physical examination performed. 2. Discussed hammertoe of right 5th toe as cause for recurrent callus. Callus of right 5th toe was reduced today with 15 blade and dremmel. Will treat with hammertoe pad 3. Discussed getting xrays to evaluate defomrity to see if options are avilable for correction 4. Discussed getting pvr 5. Diabetic foot exam performed. Lorna Arroyo DPM Podiatry [address] [facility] [address] Dept: [phone] Dept Patient presents with: Right Foot - New: Pain in the right 5th toe Patient states he developed a diabetic ulcer from his right foot rubbing on his steel toed boots. Saw Dr. Carrion at the [facility] for treatment. States it has gotten better but hasn't gotten better. is with the patient today. 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 AMB ROOMING INTAKE FLOWSHEET DATA Pain Pain Level: 2 Pain Location: Foot-Right Description: Dull, Aching (Sensitive) Duration Amount of Time: 7 Duration Units: Weeks Frequency: Intermittent Intervention/Comfort measure: Reposition Rosmery Armijo RN documented in this encounter [facility] 2023 Instructions Lorna Arroyo - 2023 10:14 AM EST Diabetes Foot Care Instructions When you have diabetes, proper foot care is very important. Poor foot care may lead to amputation of a foot or leg. As a person with diabetes, you are more vulnerable to foot problems, because diabetes can damage your nerves and reduce blood flow to your feet. Here are some diabetes foot care tips to follow: Wash and Dry Your Feet Daily Use mild soaps Use warm water Pat your skin dry; do not rub. Thoroughly dry your feet. After washing, use lotion on your feet to prevent cracking. Do not put lotion between your toes. Examine Your Feet Each Day Check the tops and bottoms of your feet. Have someone else look at your feet if you cannot see them. Check for dry, cracked skin. Look for blisters, cuts, scratches, or other sores. Check for redness, increased warmth, or tenderness when touching any area of your feet. Check for ingrown toenails, corns, and calluses. If you get a blister or sore from your shoes, do not pop it. Apply a bandage and wear a different pair of shoes. Take Care of Your Toenails Cut toenails after bathing, when they are soft. Cut toenails straight across and smooth with a nail file. Avoid cutting into the corners of toes. Do not cut cuticles. If you have neuropathy (or decreased sensation in your feet) a blocker and polisher should always cut your toenails. Be Careful When Exercising Walk and exercise in comfortable shoes. Do not exercise when you have open sores on your feet. Protect Your Feet With Shoes and Socks Never go barefoot. Always protect your feet by wearing shoes or hard-soled slippers or footwear. Avoid shoes with high heels and pointed toes. Avoid shoes that expose your toes or heels (such as open-toed shoes or sandals). These types of shoes increase your risk for injury and potential infections. Try on new footwear with the type of socks you usually wear. Do not wear new shoes for more than an hour at a time. Change your socks daily. Look and feel inside your shoes before putting them on to make sure there are no foreign objects or rough areas. Avoid tight socks. Wear natural-fiber socks (cotton, wool, or a cotton-wool blend). Wear special shoes if your health care provider recommends them. Wear shoes/boots that will protect your feet from various weather conditions (cold, moisture, etc.). Make sure your shoes fit properly. If you have neuropathy (nerve damage), you may not notice that your shoes are too tight. Perform the footwear test described below. Footwear Test Use this simple test to see if your shoes fit correctly: Stand on a piece of paper. (Make sure you are standing and not sitting, because your foot changes shape when you stand.) Trace the outline of your foot. Trace the outline of your shoe. Compare the tracings: Is the shoe too narrow? Is your foot crammed into the shoe? The shoe should be at least 1/2 inch longer than your longest toe and as wide as your foot. Proper Shoe Choices The following types of shoes are best for people with diabetes Closed toes and heels Leather uppers without a seam inside At least 1/2 inch extra space at the end of your longest toe Inside of shoe should be soft with no rough areas Outer sole should be made of stiff material Shoes should be at least as wide as your feet Tips for Foot Care in Diabetes Don't wait to treat a minor foot problem if you have diabetes. Follow your health care provider's guidelines and first aid guidelines. Report foot injuries and infections to your health care provider immediately. Check water temperature with your elbow, not your foot. Do not use a heating pad on your feet. Do not cross your legs. Do not self-treat your corns, calluses, or other foot problems. Go to your health care provider or blocker and polisher to treat these conditions. documented in this encounter [facility] 01-21-2023 History of Present illness Narrative Subjective Patient ID: Danielle Jenkins is a 62 y.o. male who presents for Diabetes (Insulin Issues). Blood sugars are improving on average 180's Did have one episode of low blood sugar; was unable to check blood sugar, drank OJ and symptoms improved. Insurance requesting updated latus order. Current script not being covered with insurance Did get help with Jardiance co pay cost, states he should be able to get the medication soon Reports improvement in excessive urination Review of Systems Constitutional: Negative for activity change. HENT: Negative. Respiratory: Negative for chest tightness and shortness of breath. Cardiovascular: Negative for chest pain, palpitations and leg swelling. Gastrointestinal: Negative for constipation, diarrhea, nausea and vomiting. Endocrine: Negative for polydipsia, polyphagia and polyuria. Musculoskeletal: Negative for arthralgias and myalgias. Skin: Small wound to toe on right foot, clipped with toenail clipper. Is covering and using antibiotic ointment Neurological: Negative for dizziness, light-headedness and headaches. Objective BP 124/78 (Patient Position: Sitting) Pulse 80 Ht 1.867 m (6' 1.5 ) Wt 109 kg (240 lb 8 oz) BMI 31.30 kg/m Physical Exam Vitals reviewed. Constitutional: Appearance: Normal appearance. He is obese. Cardiovascular: Rate and Rhythm: Normal rate and regular rhythm. Pulses: Normal pulses. Pulmonary: Effort: Pulmonary effort is normal. Breath sounds: Normal breath sounds. Musculoskeletal: Right lower leg: No edema. Left lower leg: No edema. Skin: General: Skin is warm and dry. Neurological: Mental Status: He is alert and oriented to person, place, and time. Assessment/Plan Diagnoses and all orders for this visit: Type 2 diabetes mellitus with hyperglycemia, with long-term current use of insulin ([facility]) - insulin glargine (Lantus Solostar U-100 Insulin) 100 unit/mL (3 mL) pen; Inject 36 Units under the skin once daily at bedtime. Take as directed per insulin instructions. - Hemoglobin A1c; Future; prior to next follow up - New script for Lantus sent to pharmacy, continue on current antidiabetic regimen, Continue to monitor blood sugar at home and follow diabetic diet documented in this encounter [facility] Work Phone: 01-03-2023 History of Present illness Narrative Subjective Patient ID: Danielle Jenkins is a 62 y.o. male who presents for Establish Care and Hypertension. 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 Explanation of AM = his awake time and PM = his sleep time Blood pressure has also been elevated, average 140/80's, he states its always high Denies CP/AGUILAR/visual changes Daily smoker H/O Bipolar disorder, used to have psychiatrist, he was on wait list at [facility], does not currently follow with psychiatry Has H/O suicide attempt X 7, last attempt was in 2012, he was hospitalized at that time Denies suicidal ideation currently Review of Systems Constitutional: Negative for activity change and chills. HENT: Negative. Eyes: Negative for visual disturbance. Respiratory: Negative for cough, chest tightness, shortness of breath and wheezing. Cardiovascular: Negative for chest pain, palpitations and leg swelling. Gastrointestinal: Negative for abdominal pain, constipation, diarrhea, nausea and vomiting. Endocrine: Positive for polydipsia and polyuria. Negative for polyphagia. Genitourinary: Negative for decreased urine volume and difficulty urinating. Musculoskeletal: Negative for arthralgias and myalgias. Skin: Negative for color change. Neurological: Negative for dizziness, weakness, light-headedness and headaches. Hematological: Does not bruise/bleed easily. Objective BP 148/90 (Patient Position: Sitting) Pulse 96 Ht 1.867 m (6' 1.5 ) Wt 109 kg (240 lb) BMI 31.23 kg/m Physical Exam Vitals reviewed. Constitutional: General: He is not in acute distress. Appearance: Normal appearance. He is normal weight. Cardiovascular: Rate and Rhythm: Normal rate and regular rhythm. Pulses: Normal pulses. Pulmonary: Effort: Pulmonary effort is normal. Breath sounds: Normal breath sounds. Abdominal: General: Bowel sounds are normal. Palpations: Abdomen is soft. Tenderness: There is no abdominal tenderness. Skin: General: Skin is warm and dry. Neurological: Mental Status: He is alert and oriented to person, place, and time. Assessment/Plan Diagnoses and all orders for this visit: Anxiety - Referral to Psychiatry; Future Bipolar depression ([facility]) - Continue on current treatment; Paxil 40 mg daily and Abilify 2 mg daily - Referral to Psychiatry; Future Benign essential HTN - NIFEdipine CC (Adalat CC) 30 mg 24 hr tablet; Take 1 tablet (30 mg) by mouth once daily. Do not crush, chew, or split. - Blood pressure not at goal, will stop Amlodipine and start on Nifedipine, will add hydrochlorothiazide to Losartan daily - Goal BP <130/80 Hyperlipidemia LDL goal <100 -Continue on Statin therapy: will likely need dose increased to high intensity statin Type 2 diabetes mellitus with hyperglycemia, with long-term current use of insulin ([facility]) - empagliflozin (Jardiance) 10 mg; Take 1 tablet daily in AM - metFORMIN (Glucophage) 500 mg tablet; Take 2 tablets (1,000 mg) by mouth 2 times a day with meals. - Continue on Lantus 36 units in PM daily. - Discontinue glipizide, monitor BG twice daily and keep record, follow low sugar diabetic diet, and eat at least 2 meals daily. 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 Lantus and get back on Trulicity weekly - A1C goal 7.5 or less - Has appointment to establish with Endocrinology in February Other orders - Follow Up In Primary Care - Health Maintenance; Future documented in this encounter [facility] Work Phone: 01-03-2023 Instructions PAPA Levine - 01/03/2023 8:30 AM EDT AM Meds: (waking) Losartan/hydrochlorothiazide, Jardiance, Metformin PM Meds (sleep) Nifedipine, Metformin, Lantus Check BS AM and PM Check BP AM Take Metformin with meals documented in this encounter [facility] Work Phone: 12-15-2022 Note Send Summary: Discharge Summary Providers: Provider RoleProvider Name Brett Acosta Kimberly Note Recipients: Gi Hartman DO - [id number] [PREFERRED] Discharge: Summary: Admission Date: .12-Dec-2022 20:32:00 Discharge Date: 15-Dec-2022 Attending Physician at Discharge: Brett Calles Admission Reason: hyperglycemia Final Discharge Diagnoses: hyperglycemia Procedures: none Condition at Discharge: Satisfactory Disposition at Discharge: .Home Vital Signs: T PRBPMAPSpO2 [id number]/8497% Date/Time12/15 8:8 8:8 8:8 8:0078 8:00 Range(36.3C - 36.9C ) (65 - 87 ) (16 - 16 ) (130 - 161 )/ (84 - 95 ) (96% - 98% ) Highest temp of 36.9 C was recorded at 12/14 16:00 Date: Weight/Scale Type:Height: 13-Dec-2022 01:30656.4 kg / wfe314.5 cm Physical Exam: Constitutional: awake/alert/oriented x3, not in acute distress, Eyes: PERRL, EOMI, clear sclera ENMT: normal hearing, mucous membranes moist, no pharyngeal erythema or exudates Head/Neck: neck supple, no apparent injury, no JVD, no lymphadenopathy, trachea midline Respiratory/Thorax: patent airways, clear to auscultation bilaterally, no crackles or wheezing or rhonchi Cardiovascular: Regular, rate and rhythm, no murmurs, 2+ equal pulses of the extremities Gastrointestinal: nondistended, positive bowel sounds, soft, non-tender, no rebound tenderness or guarding, no masses palpable, no organomegaly Extremities: no edema Neurological: intact senses, motor, response and reflexes, normal strength, babinski negative Psychological: Appropriate mood and behavior Skin: warm, no rashes Hospital Course: 62-year-old male with past medical history of insulin-dependent diabetes with poorly controlled sugar levels,, hypertension, hyperlipidemia and bipolar disease who presented to the emergency room for a near syncopal episode. Patient was found to have hyperglycemia with normal anion gap metabolic acidosis and slightly elevated lactic acid level. Plan Patient treated with IV fluid hydration Improving blood sugar trends on insulin Ongoing tight control of his sugars Optimize pressure medicines with goal BP less than 140/90 Continue on statins Escitalopram for depression On antidiabetic medicines and insulin To follow endocrine outpatient Nicotine patch Increase losartan to 50 mg p.o. daily and watch vitals closely Patient to check his pressure at home periodically Also keep fingerstick log to track blood sugar trends, Patient told me that his long-acting insulin was increased to 36 units from 30 units at bedtime and hence revised on reconciliation To follow PCP and endocrine for any further recommendations or changes as deemed appropriate Also on propranolol 40 mg daily Continue all current medications and supportive care on dc Education counseling Cardiac event monitor on discharge Consider echo and MRI outpatient if necessary by PCP Clinically improving Seems metabolic related time to dc > 35 mins Discharge Information: and Continuing Care: Lab Results - Pending: None Radiology Results - Pending: None Discharge Instructions: Activity: activity as tolerated. Nutrition/Diet: low fat Follow Up Appointments: Follow-Up Appointment 01: Physician/Dept/Service: follow PCP Call to Schedule in: 1 week Follow-Up Appointment 02: Physician/Dept/Service: follow endocrine on dc please Discharge Medications: Home Medication atorvastatin 20 mg oral tablet - 1 tab(s) orally once a day Aleve 220 mg oral tablet - 2 tab(s) orally every 12 hours NexIUM 40 mg oral delayed release capsule - 1 cap(s) orally once a day Paxil 40 mg oral tablet - 1 tab(s) orally once a day Abilify 2 mg oral tablet - 1 tab(s) orally once a day Garlic oral capsule - 1 cap(s) orally once a day Fish Oil 1000 mg oral capsule - 1 cap(s) orally once a day GlipiZIDE XL 10 mg oral tablet, extended release - 2 tab(s) orally once a day losartan 50 mg oral tablet - 1 tab(s) orally once a day Basaglar KwikPen 100 units/mL subcutaneous solution - 36 unit(s) subcutaneous once a day (at bedtime) PRN Medication ondansetron 4 mg oral tablet, disintegrating - 1 tab(s) orally 4 times a day, As Needed -for nausea and vomiting DNR Status: Code StatusCode Status order at time of discharge: Full Code Electronic Signatures: Brett Calles) (Signed 15-Dec-2022 11:41) Authored: Send Summary, Summary Content, Ongoing Care, DNR Status, Note Completion Last Updated: 15-Dec-2022 11:41 by Brett Calles) [facility] 12-15-2022 Hospital Discharge instructions Activity:activity as tolerated.Follow Up Appointment 1:Physician/Dept/Service: follow PCP Dr. Jarrell to Schedule in: 2 weeksLocation: [address]: He will call and make hi mary appointment.Follow Up Appointment 2:Physician/Dept/Service: follow endocrine on dc please [facility] 12-13-2022 Note History of Present I llness: HPI: DANIELLE JENKINS is a 62 year old Male Who presented to the emergency room for a near syncopal episode. On presentation, blood pressure 166/93, heart rate 88, respiratory rate 16, afebrile, saturation oxygen 97% on room air. Pertinent findings on blood work-up glucose 366 and bicarbonate 20. Lactic acid 2.1. CT of the head did not show any acute findings. Nor did the chest x-ray. Patient was given in the emergency room 10 units insulin followed by 5 units, Zofran, and IV fluids and then admitted to the medical service for further investigation management. Patient said that he was in his usual state of health when suddenly and while sitting in a chair, he felt foggy at around 7:30 PM and then felt he was going to pass out. He laid on the floor. He did not pass out. His spouse was with him. He remained foggy. So he called the ER. He did not check his sugar levels at that time. He is diabetic. He does not check his sugar levels on a daily basis. The last time he checked it was 2 days ago and he told me it was around 130. He said that he is compliant with his insulin regimen and his diabetic diet. Especially the last 2 months. This is the first time he experiences such an event. He did not have any blurry vision or palpitations or shortness of breath or chest pain or vertigo. Denies any fever or chills. Review of Systems: 10 systems were reviewed and were negative except for those noted in the history of present illness. Past medical history: Insulin-dependent diabetes. Hypertension, hyperlipidemia, bipolar disease, Social history: Nonsmoker, no alcohol abuse Family history: Has been reviewed and there are no findings pertinent to the chief complaint Allergies: No Known Allergies: Medications Prior to Admission: atorvastatin 20 mg oral tablet: 1 tab(s) orally once a day Escitalopram 20 Mg Tablet: 1 tab(s) orally once a day Losartan Potassium 25 Mg Tab: 1 tab(s) orally once a day Aleve 220 mg oral tablet: 2 tab(s) orally every 12 hours NexIUM 40 mg oral delayed release capsule: 1 cap(s) orally once a day ondansetron 4 mg oral tablet, disintegratin tab(s) orally 4 times a day, As Needed -for nausea and vomiting Propranolol 40 Mg Tablet: 1 tab(s) orally once a day Paxil 40 mg oral tablet: 1 tab(s) orally once a day Abilify 2 mg oral tablet: 1 tab(s) orally once a day glipiZIDE 10 mg oral tablet: 2 tab(s) orally once a day Basaglar KwikPen 100 units/mL subcutaneous solution: 30 unit(s) subcutaneous once a day (at bedtime) Garlic oral capsule: 1 cap(s) orally once a day Fish Oil 1000 mg oral capsule: 1 cap(s) orally once a day. Objective: Objective Information: T PRBPMAPSpO2 [id number]% Date/Time12/13 1: 1: 1: 1: 1: 1:35 Range(35.7C - 36.9C ) (73 - 102 ) (16 - 18 ) (128 - 166 )/ (73 - 93 ) (96 - 109 ) (93% - 98% ) Highest temp of 36.9 C was recorded at 12/13 1:35 Pain reported at 12/13 1:35: 0 = None Physical Exam by System: Constitutional: awake/alert/oriented x3, not in acute distress, Eyes: PERRL, EOMI, clear sclera ENMT: normal hearing, mucous membranes moist, no pharyngeal erythema or exudates Head/Neck: neck supple, no apparent injury, no JVD, no lymphadenopathy, trachea midline Respiratory/Thorax: patent airways, clear to auscultation bilaterally, no crackles or wheezing or rhonchi Cardiovascular: Regular, rate and rhythm, no murmurs, 2+ equal pulses of the extremities Gastrointestinal: nondistended, positive bowel sounds, soft, non-tender, no rebound tenderness or guarding, no masses palpable, no organomegaly Extremities: no edema Neurological: intact senses, motor, response and reflexes, normal strength, babinski negative Psychological: Appropriate mood and behavior Skin: warm, no rashes Recent Lab Results: Results: CBC: 12/12/2022 21:02 \ Hgb / \ 15.5 / WBC Plt 7.8 150 / Hct \ / 44.1 \ RBC: 5.07 MCV: 87 Neutrophil %: 80.4 CMP: 12/12/2022 21:02 NA+ Cl- BUN / 132 L 104 20 / Glucose 366 H K+ HCO3- Creat \ 4.4 20 L 1.07 \ \ T Bili / \ 1.4 H / AST x ---- x ALT 17 x ---- x 25 / Alk P \ / 101 \ Calcium : 8.6 Anion Gap : 12 Albumin : 3.7 T Protein : 6.0 L Radiology Results: Results: Impression: No acute intracranial abnormality or calvarial fracture. CT Head without Contrast [Dec 12 2022 10:56PM] Impression: No acute cardiopulmonary process. Xray Chest 1 View [Dec 12 2022 10:00PM] Assessment and Plan: Assessment: 62-year-old male with past medical history of insulin-dependent diabetes with poorly controlled sugar levels,, hypertension, hyperlipidemia and bipolar disease who presented to the emergency room for a near syncopal episode. Patient was found to have hype (more content not included)... [facility] Evaluation note Constitutional: awake/alert/oriented x3, not in acute distress,Skin: warm, no rashesEyes: PERRL, EOMI, clear scleraENMT: normal hearing, mucous membranes moist, no pharyngeal erythema or exudatesHead/Neck: neck supple, no apparent injury, no JVD, no lymphadenopathy, trachea midlineRespiratory/Thorax: patent airways, clear to auscultation bilaterally, no crackles or wheezing or rhonchiCardiovascular: Regular, rate and rhythm, no murmurs, 2+ equal pulses of the extremitiesGastrointestinal: nondistended, positive bowel sounds, soft, non-tender, no rebound tenderness or guarding, no masses palpable, no organomegalyExtremities: no edemaNeurological: intact senses, motor, response and reflexes, normal strength, babinski negativePsychological: Appropriate mood and behavior [facility] Anxiety- Primary Anxiety state, unspecified Bipolar depression (CMS/HCC) Bipolar I disorder, most recent episode (or current) depressed, unspecified Benign essential HTN Hyperlipidemia LDL goal <100 Other and unspecified hyperlipidemia Type 2 diabetes mellitus with hyperglycemia, with long-term current use of insulin (CMS/HCC) documented in this encounter [facility] Work Phone: Evaluation note* Diagnosis Type 2 diabetes mellitus with hyperglycemia, with long-term current use of insulin (CMS/HCC)- Primary documented in this encounter [facility] Work Phone: Evaluation note* Diagnosis Hammertoe of right foot Hyperkeratosis Acquired keratoderma Diabetic neuropathy with neurologic complication (HCC) Type II or unspecified type diabetes mellitus with neurological manifestations, not stated as uncontrolled [facility] Diagnosis Hammertoe of right foot- Primary Hyperkeratosis Acquired keratoderma Diabetic neuropathy with neurologic complication (HCC) Type II or unspecified type diabetes mellitus with neurological manifestations, not stated as uncontrolled [facility] Diagnosis Hammertoe of right foot- Primary Hyperkeratosis Acquired keratoderma Diabetic neuropathy with neurologic complication (HCC) Type II or unspecified type diabetes mellitus with neurological manifestations, not stated as uncontrolled [facility] Consultation (Routine) - Authorized Specialty Diagnoses / Procedures Referred By Sasha collins Referred To Contact Psychiatry Diagnoses Anxiety Bipolar depression ([facility]) Procedures TX OFFICE/OUTPATIENT [facility] MDM 60-74 MINUTES Ramón Jones APRN-CNP [address] [facility], [facility] [address] [id number] Paris Frias MD [address] [place] [address] Referral ID Status Reason Start Date Expiration Date Visits Requested Visits Authorized [id number] Authorized Specialty Services Required 01/03/2023 07/02/2023 1 1 * Consultation (Routine) - Authorized Specialty Diagnoses / Procedures Referred By Sasha collins Referred To Contact Primary Care Procedures Follow Up In Primary Care - Health Maintenance Ramón Jones APRN-CNP [address] [facility], [facility] [address] [id number] Referral ID Status Reason Start Date Expiration Date V isits Requested Visits Authorized [id number] Authorized 01/03/2023 07/02/2023 1 1 [facility] Work Phone: Reason for referral (narrative)* Outpatient Procedure (Routine) - Pending Review Specialty Diagnoses / Procedures Referred By Sasha collins Referred To [facility] Diagnoses Hammertoe of right foot Hyperkeratosis Diabetic neuropathy with neurologic complication (HCC) Procedures PVR [facility] NON-INVAS PHYSIOLOGIC STD EXTREMITY ART 2 LEVEL Lorna Arroyo [address] [place] [address] [facility] [address] [place] [address] Referral ID Status Reason Start Date Expiration Date Visits Requested Visits Authorized [id number] Pending Review Auto-Generat ed Referral 2023 04/15/2024 1 1 * Diagnostic Procedure Only (Routine) - Pending Review Specialty Diagnoses / Procedures Referred By Sasha collins Referred To Contact XR IMAGING Diagnoses Hammertoe of right foot Hyperkeratosis Diabetic neuropathy with neurologic complication (HCC) Procedures XR FOOT GENERAL 3V AP/LAT/OBL RIGHT RADEX FOOT COMPLETE MINIMUM 3 VIEWS Lorna Arroyo [address] [place] [address] [place] [address] Referral ID Status Reason Start Date Expiration Date Visits Requested Visits Authorized [id number] Pending Review Auto-Generat ed Referral 2023 05/15/2024 1 1 [facility] for visit Narrative* Diagnostic Procedure Only (Routine) - Pending Review Specialty Diagnoses / Procedures Referred By Sasha collins Referred To Contact XR IMAGING Diagnoses Hammertoe of right foot Hyperkeratosis Diabetic neuropathy with neurologic complication (HCC) Procedures XR FOOT GENERAL 3V AP/LAT/OBL RIGHT RADEX FOOT COMPLETE MINIMUM 3 VIEWS Lorna Arroyo [address] [place] [address] [place] [address] Referral ID Status Reason Start Date Expiration Date Visits Requested Visits Authorized [id number] Pending Review Auto-Generat ed Referral 2023 05/15/2024 1 1 [facility] Summary Purpose Family History No Family History Records Found Mother Name Dates Details Family history of hypertensi on(V17.49, Z82.49) Status:Active Father Name Dates Details Family history of hypertensi on(V17.49, Z82.49) Status:Active Sister Name Dates Details Family history of hypertensi on(V17.49, Z82.49) Status:Active Family history of type 2 ranjeet betes mellitus(V18.0, Z83.3) Status:Active Unknown Family Member Name Dates Details Family history of hypertensi on: Mother, Father, Sister(V17.49, Z82.49) Status:Active Family history of type 2 ranjeet betes mellitus: Sister(V18.0, Z83.3) Status:Active Unknown Family Member Name Dates Details Family history of type 2 ranjeet betes mellitus: Sister(V18.0, Z83.3) Status:Active Family history of hypertensi on: Mother, Father, Sister(V17.49, Z82.49) Status:Active Unknown Family Member Name Dates Details Family history of hypertensi on: Mother, Father, Sister(V17.49, Z82.49) Status:Active Family history of type 2 ranjeet betes mellitus: Sister(V18.0, Z83.3) Status:Active Unknown Family Member Name Dates Details Family history of type 2 ranjeet betes mellitus: Sister(V18.0, Z83.3) Status:Active Family history of hypertensi on: Mother, Father, Sister(V17.49, Z82.49) Status:Active Unknown Family Member Name Dates Details Family history of hypertensi on: Mother, Father, Sister(V17.49, Z82.49) Status:Active Family history of type 2 ranjeet betes mellitus: Sister(V18.0, Z83.3) Status:Active Unknown Family Member Name Dates Details Family history of hypertensi on: Mother, Father, Sister(V17.49, Z82.49) Status:Active Family history of type 2 ranjeet betes mellitus: Sister(V18.0, Z83.3) Status:Active Unknown Family Member Name Dates Details Family history of hypertensi on: Mother, Father, Sister(V17.49, Z82.49) Status:Active Family history of type 2 ranjeet betes mellitus: Sister(V18.0, Z83.3) Status:Active Unknown Family Member Name Dates Details Family history of hypertensi on: Mother, Father, Sister(V17.49, Z82.49) Status:Active Family history of type 2 ranjeet betes mellitus: Sister(V18.0, Z83.3) Status:Active Unknown Family Member Name Dates Details Family history of hypertensi on: Mother, Father, Sister(V17.49, Z82.49) Status:Active Family history of type 2 ranjeet betes mellitus: Sister(V18.0, Z83.3) Status:Active Unknown Family Member Name Dates Details Family history of type 2 ranjeet betes mellitus: Sister(V18.0, Z83.3) Status:Active Family history of hypertensi on: Mother, Father, Sister(V17.49, Z82.49) Status:Active Unknown Family Member Name Dates Details Family history of hypertensi on: Mother, Father, Sister(V17.49, Z82.49) Status:Active Family history of type 2 ranjeet betes mellitus: Sister(V18.0, Z83.3) Status:Active Advance Directives No Advanced Directives Records FoundNo Advanced Directives Records FoundNo Advanced Directives Records FoundNo Advanced Directives Records FoundNo Advanced Directives Records FoundNo Advanced Directives Records FoundNo Advanced Directives Records FoundNo Advanced Directives Records FoundNo Advanced Directives Records FoundNo Advanced Directives Records Found Chief Complaint * Pt is here today for a follow up, He was also at [facility] ER 03/23/22 C/O diarrhea. This note was generated by using Zoond[employer] software. It may contain errors in wording, punctuate, or spelling. * He is here today for follow-up. Unfortunately he developed very severe diarrhea and ended up going to the emergency room on March 23. There they determined he was dehydrated and gave him some fluids. They also determined that the most likely culprit for his diarrhea was the metformin. He states he was having up to 15 bowel movements a day. He states he stopped the metformin and now he is down to 1 or 2. He states there is still watery but have improved dramatically. We talked about taking Imodium. We also discussed his hemoglobin A1c which unfortunately came back extremely high at 16. We talked about how this could really make him feel rotten and we want to work together on getting the sugars down safely. 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 We did conduct a review of systems and we will be watching very closely. * Pt is here today for a follow up. This note was generated by using Zoond[employer] software. It may contain errors in wording, punctuate, or spelling. * He is here today for his checkup. He brought in his glucometer with him and he read off the readings he has been getting over the past week or so. His morning readings have been anywhere from 139 up to 184 which is an improvement. He forgot that I wanted him to check before his evening meal and he will start doing that moving forward. We also reviewed his medicines. We will increase the dose of his Levemir by 2 units and he will give me weekly updates. We also increased the dose of the paroxetine which has helped somewhat with his depression but he states he is not sleeping well at night. We have reminded that he does have bipolar depression and we talked about possibly trying trazodone buthe states that in the past he took it and it made him sick. Going to have him get into psychiatry at [facility]. He also has had complete resolution of his diarrhea and abdominal pain after stopping the metformin. We did conduct a review of systems and we will see him back in mid May for follow-up. * Pt is here today for a week follow up, review labs. This note was generated by using Zoondy software. It may contain errors in wording, punctuate, or spelling. * He is here today for follow-up. We went over the results of his hemoglobin A1c and I am extremely pleased with his progress. He managed to drop his hemoglobin A1c from 16 down to 8. He states he has been watching his diet closely and doing everything he was instructed to do. 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 We talked about increasing the Trulicity dose to the next notch and he is agreeable. He will continue to watch his diet and I told him to continue checking his blood sugars regularly. He knows to call if his sugars are running too high or too low. We also talked about his depression and he states that [facility] has not contacted him about an appointment. We will call on his behalf. He did end up going to the emergency room on May 10 with some dizziness and unfortunately he left before his evaluation was complete. He states he got a little bit agitated but he states he is feeling fine now he no longer has dizziness. He will call if it recurs or he may need to be seen again. He also complains of little bit of some left hand swelling that began on Saturday. 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 He did not have a specific injury and he states his hand is feeling better today and the swelling is almost resolved. We talked about taking some [id number]-ilyzovg ibuprofen as directed with food and to rest his hand is much as possible. He will call if this recurs. His blood pressure was also very high today but he states he was in a [place] to get here this morning and forgot to take his medicine. We talked about devising a system whereby he always remembers to take his medicine and check his blood sugars. I given some tips. We decided that we will see him back in about 3 months for another laboratory checkup and sooner if he is having any problems. Reason for Referral Specialty Diagnoses / Procedures Referred By Sasha collins Referred To Contact Endocrinology Diagnoses Diabetes mellitus type 2, insulin dependent (HCC) Gi Hartman, DO [address] [place] [address] Demetrius Waters, ENGINEERING MANAGER [employer]LECTRONICS [address] [address] Referral ID Status Reason Start Date Expiration Date V isits Requested Visits Authorized [id number] Authorized 12/26/2022 12/26/2023 1 1 Additional Source Comments (unrecognized sect ion and content) No Status Records FoundNo Status Records FoundNo Status Records FoundNo Status Records FoundNo Status Records FoundNo Status Records FoundNo Status Records FoundNo Status Records FoundNo Status Records FoundNo Status Records Found INFORMATION SOURCE (unrecogn ized section and content) DATE CREATED AUTHOR AUTHOR'S ORGANIZ ATION 05/10/2021 [facility] DATE CREATED AUTHOR AUTHOR'S ORGANIZ ATION 06/01/2022 [facility] DATE CREATED AUTHOR AUTHOR'S ORGANIZ ATION 12/13/2022 [facility] DATE CREATED AUTHOR AUTHOR'S ORGANIZ ATION 12/18/2022 [facility] DATE CREATED AUTHOR AUTHOR'S ORGANIZ ATION 01/10/2023 [facility] DATE CREATED AUTHOR AUTHOR'S ORGANIZ ATION 02/26/2023 [facility] DATE CREATED AUTHOR AUTHOR'S ORGANIZ ATION 03/22/2023 [facility] DATE CREATED AUTHOR AUTHOR'S ORGANIZ ATION 04/01/2023 [facility] DATE CREATED AUTHOR AUTHOR'S ORGANIZ ATION 06/08/2023 [facility] <item><item><item> Privacy Markings (unrecogniz ed section and content) Section Author: Yina Wilder PROHIBITION ON REDISCLOSURE OF CONFIDENTIAL INFORMATION This notice accompanies a disclosure of information concerning a client made to you with the consent of such client. Section Author: Yina Wilder PROHIBITION ON REDISCLOSURE OF CONFIDENTIAL INFORMATION This notice accompanies a disclosure of information concerning a client made to you with the consent of such client. Section Author: Yina Wilder PROHIBITION ON REDISCLOSURE OF CONFIDENTIAL INFORMATION This notice accompanies a disclosure of information concerning a client made to you with the consent of such client. Care Teams (unrecognized sec tion and content) Orthotics Assistant Relationship Specialty Start Date End Date [facility] Stoner [address] [facility] Medical Office Building [place] [id number] PCP - [employer] PCP 06/10/22 Ramón Jones APRN-ENGINEERING MANAGER ELECTRONICS [address] [facility], [place] [address] [place] [id number] PCP - General Family Medicine 12/31/22 Kathrni Munson LPN Care Treating Engineer Helper 12/17/22 Orthotics Assistant Relationship Specialty Start Date End Date Ramón Jones APRN-YVONNE [address] [facility] [place] [address] [place] [id number] PCP - General Family Medicine 12/31/22 Kathrin Munson LPN Care Treating Engineer Helper 12/17/22 Reason for Visit (unrecogniz ed section and content) Reason Comments Diabetes Insulin Issues Reason Comments Results Reason Comments New Pain in the right 5t h toe Specialty Diagnoses / Procedures Referred By Contact Referred To Contact [facility] Diagnoses Bilateral foot pain Procedures AJITH FOOT PAIN / DIABETIC FOOT CARE [facility] [address] [place] [id number] Referral ID Status Reason Start Date Expiration Date Visits Requested Visits Authorized [id number] Outside PCP Patient Cleared - Qualified [id number]/[id number] 03/15/2023 06/13/2023 99 99 Reason Comments Established Patient Follow Up Pain Specialty Diagnoses / Procedures Referred By Contact Referred To Contact [facility] Diagnoses Bilateral foot pain Procedures AJITH FOOT PAIN / DIABETIC FOOT CARE [facility] [address] [place] [address] Source Comments (unrecognize d section and content) In the event this informatio n is protected by the Federal Confidentiality of Alcohol and Drug Abuse Patient Records regulations: The Federal rules restrict any use of the information to criminally investigate or prosecute any alcohol or drug abuse patient.[facility] the event this information is protected by the Federal Confidentiality of Alcohol and Drug Abuse Patient Records regulations: The Federal rules restrict any use of the information to criminally investigate or prosecute any alcohol or drug abuse patient.[facility] the event this information is protected by the Federal Confidentiality of Alcohol and Drug Abuse Patient Records regulations: The Federal rules restrict any use of the information to criminally investigate or prosecute any alcohol or drug abuse patient.[facility] the event this information is protected by the Federal Confidentiality of Alcohol and Drug Abuse Patient Records regulations: The Federal rules restrict any use of the information to criminally investigate or prosecute any alcohol or drug abuse patient.[facility] FOR RECORDS PERTAINING TO PATIENTS WHO ARE OR HAVE BEEN ENROLLED IN A CHEMICAL DEPENDENCY/SUBSTANCEABUSE PROGRAM, SOME INFORMATION MAY BE OMITTED. This clinical summary was aggregated from multiple sources. Caution should be exercised in using it in the provision of clinical care. This summary normalizes information from multiple sources, and as a consequence, information in this document may materially change the coding, format and clinical context of patient data. In addition, data may be omitted in some cases. CLINICAL DECISIONS SHOULD BE BASED ON THE PRIMARY CLINICAL RECORDS. [facility] [employer] [facility]. provides no warranty or guarantee of the accuracy or completeness of information in this document.
[2023-06-19 03:05] LABS: Bedside Glucose 157 mg/dL (74-106)
== END 2023-06-19 02:55 | disposition home or self-care (01) ==
PROVIDERS: Emergency Provider Emergency Medicine; PCP Family Medicine; Visit Provider Emergency Medicine
DX: E11.649 Type 2 diabetes mellitus with hypoglycemia without coma (principal); Z79.4 Long term (current) use of insulin; F17.210 Nicotine dependence, cigarettes, uncomplicated; Z79.84 Long term (current) use of oral hypoglycemic drugs
CPT/HCPCS: 82962; 99282